=== PATIENT | female | born 1985 | race Caucasian/White ===

== ENCOUNTER 2016-05-20 20:43 | Emergency (ER) | payer OTHER ==
[~2016-05-20] VITALS: Ht 170.2 cm; Wt 54.4 kg
[~2016-05-20 20:43] MED LIST: QUET100T38
[2016-05-20 21:37] LABS: Basophils # (auto) 0 uL; Basophils % (auto) 0.3 % (0.0-2.0); Eosinophils # (auto) 0.1 uL; Eosinophils % (auto) 0.4 % (0.0-7.0); Hematocrit 32.5 % (36.0-46.0); Hemoglobin 10.8 g/dL (12.2-16.2); Lymphocytes # (auto) 1.2 uL; Lymphocytes % (auto) 9.7 % (10.0-50.0); Mean Corpuscular Hgb Conc. 33.2 g/dL (32.0-36.0); Mean Corpuscular Volume 87.4 fL (80.0-100.0); Mean Platelet Volume 8.7 fL (7.4-10.4); Monocytes # (auto) 0.8 uL; Monocytes % (auto) 6.6 % (0.0-12.0); Neutrophils # (auto) 10.3 uL; Platelet Count (auto) 346 10^3/uL (140-450); Red Cell Distribution Width 12.8 % (11.6-16.0); White Blood Cell 12.4 10^3/uL (4.4-10.8)
[2016-05-20 22:13] LABS: Albumin 2.5 g/dL (3.4-5.0); Alkaline Phosphatase 90 U/L (45-117); Anion Gap 8 (5-15); Aspartate Aminotransferase 14 U/L (15-37); BUN/Creatinine Ratio 15.1; Bilirubin, Total 0.6 mg/dL (0.2-1.0); Blood Urea Nitrogen 8 mg/dL (7-18); Calcium 8.1 mg/dL (8.5-10.1); Carbon Dioxide 29 mmol/L (21-32); Chloride 96 mmol/L (98-107); GFR African American 173 mL/min; GFR Non-African American 143 mL/min; Glucose 118 mg/dL (74-106); Magnesium 2.1 mg/dL (1.6-2.6); Potassium 3.6 mmol/L (3.5-5.1); Sodium 133 mmol/L (136-145); Total Protein 6.8 g/dL (6.4-8.2)
[2016-05-20 22:58] LABS: Urine Bilirubin Negative (Negative); Urine Color Yellow (Yellow); Urine Glucose Normal (Normal); Urine Ketone Negative (Negative); Urine Mucus FEW (None Seen); Urine Nitrite Negative (Negative); Urine RBC 113 /hpf (0 - 4); Urine Squamous Epithelial Cell MANY /hpf (<5); Urine WBC Clumps PRESENT /hpf (None Seen)
[2016-05-20 22:59] LABS: Urine Blood 2+ /uL (Negative)
[2016-05-20 23:20] LABS: INR 1.07 (0.9-1.15); Partial Thromboplastin Time 29.7 sec (22.64-33.71); Prothrombin Time 11.6 sec (9.37-12.3)
[2016-05-20] MEDS ORDERED: cefTRIAXone 1GM/50ML D5W 50 ML IV ONE (23:45)
[2016-05-21] MEDS ORDERED: VANCOMYCIN 1GM/250ML D5W 250 ML IV ONE
[2016-05-21] MEDS: LIDOCAINE 2%HCL (LOCAL ANESTH.) INJ 20ML MDV ID ONE ×2 (08:35→08:50)
[2016-05-21] MEDS: MIDAZOLAM HCL 5 MG/ML-1ML VIAL IV ONE ×2 (08:35→08:50)
[2016-05-21] MEDS: fentaNYL CITRATE 100 MCG/2 ML VL IV ONE ×2 (08:40→08:51)
[2016-05-21 14:44] VITALS: BP 107/62
== END 2016-05-21 14:44 | disposition short-term general hospital (02) ==
LOC: EDBD 20:43 → ER 20:52
DX: L02.415 Cutaneous abscess of right lower limb (principal); F15.10 Other stimulant abuse, uncomplicated; F11.10 Opioid abuse, uncomplicated
CPT/HCPCS: 10060; 36415; 73700; 80053; 80320; 81001; 81025; 82962; 83605; 83735; 84484; 85025; 85610; 85730; 87040; 96365; 96366; 96367; 96375; 99285; G0434; J0696; J2250; J3010; J3370

== ENCOUNTER 2016-10-25 14:35 | Observation (INO) | payer OTHER ==
[~2016-10-25] VITALS: Ht 157.5 cm; Wt 40.8 kg
[2016-10-25] MEDS ORDERED: SODIUM CHLORIDE 0.9% 1,000 ML IV ONE ×2 (15:00→18:15)
[2016-10-25 15:43] LABS: Basophils # (auto) 0 uL; Basophils % (auto) 0.4 % (0.0-2.0); CONDITION Y; Eosinophils # (auto) 0 uL; Eosinophils % (auto) 0.9 % (0.0-7.0); Hematocrit 32.6 % (36.0-46.0); Hemoglobin 10.9 g/dL (12.2-16.2); Lymphocytes # (auto) 1.7 uL; Mean Corpuscular Hemoglobin 29.5 pg (28.0-32.0); Mean Corpuscular Hgb Conc. 33.3 g/dL (32.0-36.0); Mean Corpuscular Volume 88.6 fL (80.0-100.0); Mean Platelet Volume 8.7 fL (7.4-10.4); Monocytes # (auto) 0.2 uL; Monocytes % (auto) 5.6 % (0.0-12.0); Neutrophils # (auto) 2.3 uL; Neutrophils % (auto) 53.1 % (37.0-80.0); Platelet Count (auto) 217 10^3/uL (140-450); Red Cell Distribution Width 14.9 % (11.6-16.0); White Blood Cell 4.3 10^3/uL (4.4-10.8)
[2016-10-25 15:55] LABS: Albumin 2.9 g/dL (3.4-5.0); Alkaline Phosphatase 67 U/L (45-117); Anion Gap 7 (5-15); Aspartate Aminotransferase 9 U/L (15-37); BUN/Creatinine Ratio 10.5; Bilirubin, Total 0.4 mg/dL (0.2-1.0); Blood Urea Nitrogen 6 mg/dL (7-18); Calcium 7.9 mg/dL (8.5-10.1); Carbon Dioxide 27 mmol/L (21-32); Chloride 105 mmol/L (98-107); GFR African American 158 mL/min; GFR Non-African American 131 mL/min; Glucose 157 mg/dL (74-106); Potassium 3.2 mmol/L (3.5-5.1); Sodium 139 mmol/L (136-145); Total Protein 6.5 g/dL (6.4-8.2)
[2016-10-25] MEDS ORDERED: SODIUM CHLORIDE 0.9% 1,000 ML IVB ONE (18:12)
[2016-10-25] MEDS ORDERED: NALOXONE HCL 1MG/ML 2ML SYRINGE IV ONE (21:45)
[2016-10-26 04:28] LABS: Urine RBC None Seen /hpf (0 - 4)
[2016-10-26 04:46] LABS: Urine Bilirubin Negative (Negative); Urine Blood Negative /uL (Negative); Urine Color Yellow (Yellow); Urine Glucose Normal (Normal); Urine Ketone Negative (Negative); Urine Nitrite Negative (Negative); Urine Squamous Epithelial Cell FEW /hpf (<5); Urine Urobilinogen Normal (Negative)
[2016-10-26 06:11] VITALS: BP 162/75
== END 2016-10-26 06:36 | disposition home or self-care (01) | DRG 884 ==
LOC: ER 14:35 → EDBD 14:35 → OVERFLOW 18:13 → ER 10-26 06:36 → OVERFLOW 10-26 06:36 → ER 10-26 07:11
PROVIDERS: ADMIT Family Medicine; ATTEND Family Medicine
DX: R40.4 Transient alteration of awareness (principal); E87.6 Hypokalemia; D50.8 Other iron deficiency anemias; Z87.891 Personal history of nicotine dependence
CPT/HCPCS: 36415; 70450; 71010; 80053; 80307; 80320; 81001; 82962; 83735; 84484; 84702; 85025; 93005; 96361; 96374; 99285; G0378; J2310; J7030